=== PATIENT | female | born 1990 | race Hispanic/Latino ===

== ENCOUNTER 2019-01-01 08:37 | Emergency (ER) | payer OTHER ==
--- NOTE | 2019-01-01 09:12 | RAD ---
CHEST 2 VIEWS: Date: 01/01/19 HISTORY: Cough. FINDINGS: Heart size is normal. The lungs are clear. IMPRESSION: No acute intrathoracic disease. No evidence for pneumonia. POS: [facility]
== END 2019-01-01 09:45 | disposition home or self-care (01) ==
LOC: SCSER 08:37
DX: R05 Cough (principal)
CPT/HCPCS: 71046; 87798; 94640; J7620